=== PATIENT | female | born 2000 | race Caucasian/White ===

== ENCOUNTER 2022-02-04 09:02 | Emergency (ER) | payer MEDICAID, SELFPAY ==
[2022-02-04 09:22] VITALS: BP 141/80; PULSE 97; RESP 16; TEMP 37; O2SAT 98; BMI 40.1
[2022-02-04 09:41] LABS: Add Urine Microscopic? YES; Bilirubin Urine Neg (Negative); Blood Urine 3+ (Negative); Glucose Urine UA Norm (Normal); Ketones Urine Negative (Negative); Leukocyte Esterase Urine Trace (Negative); Nitrate Urine Negative (Negative); Protein Urine Neg (Negative); Specific Gravity, Urine 1.005 (1.005-1.030); Urine Appearance SL Hazy (CLEAR); Urine Color Yellow (Yellow); Urobilinogen Urine Norm (Negative); pH Urine 7 (5-7)
[2022-02-04 09:44] LABS: Add Urine Culture? No; Bacteria Urine TRACE /hpf; RBC Urine 0-4 /hpf (0-2)
--- NOTE | 2022-02-04 11:20 | ED_ITS ---
HPI - General: Chief complaint: Vaginal Bleeding Stated complaint: 6 weeks preg spotting Time Seen by Provider: 02/04/22 11:19 History of Present Illness: Ms. Connors is a 21-year-old female with last menstrual period December 21 presenting to the emergency department due to vaginal bleeding. She reports positive test at home and apparently was seen at [facility] approximately 1 week ago for green vaginal discharge. She reports ultrasound to identified gestational sac at that time and her beta-hCG was on the low end of normal. She noticed pink tinge last night while wiping after using the bathroom and now has progressed to bright red bleeding. Denies associated abdominal discomfort or pain. Denies passing clots or tissue. Overall course of symptoms has worsened. Intensity is moderate. No other specific changes in health, exacerbating, or alleviating factors identified. Onset (ago): hour(s) Vaginal discharge: none Vaginal bleeding: light Date of Last Menstrual Period: 12/21/21 Patient : Yes OB History - Previous Pregnancies: no complications Review of Systems General: Reports: 10 or more systems reviewed and unremarkable except in HPI and below PFSH ED PFSH: Medical History (Updated 02/12/22 @ 00:00 by ) No pertinent past medical history Social History Smoking and tobacco status: never smoked Alcohol intake: never Sexually active: Yes Female Reproductive History: Date of last menstrual period: 12/21/21 Physical Exam Const: COMMON NORMALS: alert GENERAL APPEARANCE: cooperative and well developed HENMT: COMMON NORMALS: normocephalic and atraumatic HEAD & SCALP: normocephalic and atraumatic Eye: COMMON NORMALS: conjunctivae normal CONJUNCTIVA: Yes conjunctivae normal SCLERA: sclerae normal Neck/C-Spine: COMMON NORMALS: supple GENERAL: Yes trachea midline Resp: COMMON NORMALS: normal respiratory effort and clear to auscultation bilaterally EFFORT & INSPECTION: Yes able to speak in complete sentences AUSCULTATION: clear to auscultation bilaterally Cardio: COMMON NORMALS: regular rate and regular rhythm RATE: regular rate RHYTHM: regular rhythm GI: COMMON NORMALS: Soft to palpation PALPATION: Yes Soft to palpation and No Tenderness to palpation present (GI) PERCUSSION: normal to percussion : OTHER: Pelvic exam performed with trust operations assistant present. External genitalia normal. Speculum exam reveals mucoid discharge through closed cervical os, scant amount of dark red blood in the vaginal vault without evidence of vaginal source. No specific tenderness on bimanual exam. Extremity: GENERAL: Yes normal exam except as noted and No edema Neuro: COMMON NORMALS: moves all extremities SENSORIUM/ORIENTATION: Yes alert and No Orientation impaired Psych: COMMON NORMALS: mental status grossly normal and Normal thought process present THOUGHT PROCESS: Normal thought process present Course ED course: - Patient was seen and evaluated by me at bedside - Patient placed on cardiac monitors, IV access obtained - Initial evaluation notable for exam as above - Labs personally interpreted by me - Labs notable for no leukocytosis, normal hemoglobin. Serum quant 2211 which is increased from prior reported 1027 though still on the low end. Urinalysis without evidence of urinary tract infection given squamous epithelial contamination. Negative wet prep. - Imaging notable for intrauterine gestational sac with pole and yolk sac identified, estimated 6 weeks gestational age, heart rate measured at 122. No evidence of bleeding on ultrasound. - Upon serial reexamination after treatment the patient was similar - Based on patient history, evaluation, and testing as interpreted the most likely cause of the patient's condition is threatened spontaneous - The results of ED evaluation were discussed with the patient including prescriptions and/or symptomatic cares (if applicable) including appropriate and responsible use, followup plan, and return precautions. The patient verbalized understanding and felt safe for discharge. - Patient discharged in satisfactory condition. Note: Click bubbles or prepopulated dong in note writing are used for assistance with data collection and billing and are inherently more limited than narrative and other text portions of this note. Please use narrative for additional clinical history and defer to narrative/free test for any case of contradictory information. If information appears in only free text or click bubble it s hould be considered present or absent as reported. Please contact note telegraphic typewriter operator chief for clarifications of clinical information or contradictory information. MDM is a brief summary, contradictory or erroneous seeming information should be clarified and full note should be reviewed. Vital Signs: Vital signs: Vital Signs Temperature 98.6 F 02/04/22 09:22 Pulse Rate 97 02/04/22 09:22 Respiratory Rate 16 02/04/22 09:22 Blood Pressure 141/80 02/04/22 09:22 Pulse Oximetry 98 02/04/22 09:22 MDM - OB/Uterine Contractions Medical Decision Making 21-year-old female presenting with bleeding during . Cervical os appears closed however there is mucoid discharge with scant dark red blood noted. Ultrasound identifies no evidence of bleeding, heart rate present. Most likely diagnosis is threatened spontaneous . Discussed with the patient. Return precautions given. Medical Records I reviewed the patient's medical records. Lab Data I reviewed the patient's lab results. : 02/04/22 11:34 Radiology Impressions Ultrasound 02/04/22 12:19 IMPRESSION: 1. Intrauterine gestational sac with pole and yolk sac. 2. Gestational age 6 weeks ALTHEA 09/30/2022. 3. Negative uterus and bilateral ovaries Negative bilateral ovaries 4. Small free fluid collection in the cul-de-sac Laboratory Results WBC 8.0 10^3/uL (4.5-13.0) 02/04/22 11:34 RBC 4.81 10^6/uL (4.1-5.3) 02/04/22 11:34 Hgb 14.4 g/dL (11.5-15.3) 02/04/22 11:34 Hct 42.2 % (37.0-47.0) 02/04/22 11:34 MCV 87.7 fl (81-99) 02/04/22 11:34 MCH 29.9 pg (28.0-34.0) 02/04/22 11:34 MCHC 34.1 g/dL (30.0-36.0) 02/04/22 11:34 RDW 12.4 % (12.1-15.1) 02/04/22 11:34 Plt Count 306 10^3/cmm (130-400) 02/04/22 11:34 MPV 11.2 fL (7.4-10.4) H 02/04/22 11:34 Neut % (Auto) 72.2 % 02/04/22 11:34 Lymph % (Auto) 19.9 % 02/04/22 11:34 [place] % (Auto) 5.7 % 02/04/22 11:34 Eos % (Auto) 1.4 % 02/04/22 11:34 Baso % (Auto) 0.5 % 02/04/22 11:34 Neut # (Auto) 5.75 10^3/uL (1.8-8.0) 02/04/22 11:34 Lymph # (Auto) 1.6 10^3/uL (1.5-6.5) 02/04/22 11:34 [place] # (Auto) 0.5 10^3/uL (0.2-0.9) 02/04/22 11:34 Eos # (Auto) 0.1 10^3/uL (0.0-0.8) 02/04/22 11:34 Baso # (Auto) 0.0 10^3/uL (0.0-0.1) 02/04/22 11:34 Nucleated RBC % (auto) 0 % 02/04/22 11:34 Nucleated RBCs # 0.0 /100WBC 02/04/22 11:34 Ser , Semi-Qnt 2211.00 mIU/mL 02/04/22 11:34 Urine Color Yellow (Yellow) 02/04/22 09:30 Urine Appearance Sl hazy (CLEAR) 02/04/22 09:30 Urine pH 7 (5-7) 02/04/22 09:30 Ur Specific [place] 1.005 (1.005-1.030) 02/04/22 09:30 Urine Protein Neg (Negative) 02/04/22 09:30 Urine Glucose (UA) Norm (Normal) 02/04/22 09:30 Urine Ketones Negative (Negative) 02/04/22 09:30 Urine Blood 3+ (Negative) H 02/04/22 09:30 Urine Nitrate Negative (Negative) 02/04/22 09:30 Urine Bilirubin Neg (Negative) 02/04/22 09:30 Urine Urobilinogen Norm mg/dL (Negative) 02/04/22 09:30 Ur Leukocyte Esterase Trace (Negative) H 02/04/22 09:30 Urine RBC 0-4 /hpf (0-2) H 02/04/22 09:30 Urine WBC 5-10 /hpf (0-5) H 02/04/22 09:30 Ur Squamous Epith Cells 5-10 /hpf (0-5) H 02/04/22 09:30 Amorphous Sediment Not Reportable 02/04/22 09:30 Urine Bacteria Trace /hpf (NONE) 02/04/22 09:30 Blood Type AB Positive 02/04/22 11:34 Rho(D) Type Positive 02/04/22 11:34 Discharge Plan Discharge Patient Disposition: Home Clinical Impression: Vaginal bleeding during Condition: Stable Prescriptions: No Action prenat.vits,patrica,[id number] Tablet 1 tab PO DAILY 0RF Discharge Orders: Discharge ED (Routine); Ordered 02/04/22 Ordered By: Javier Brambila Discharge Diet: Usual diet Discharge Activity: Resume usual activity Patient Instructions: Threatened Miscarriage (ED) Activity Restrictions/Additional Instructions: Thank you for visiting the emergency department. You were seen and evaluated for vaginal bleeding during . The exact cause of your symptoms is unclear. As discussed unfortunately it is impossible to know what this means regarding your . Please continue to follow-up with your QUALITY ASSURANCE SUPERVISOR BODY. Please return to the emergency department for uncontrolled pain, soaking through greater than 2 pads per hour for more than 2 hours, lightheadedness, dizziness, or anything else that you are concerned about a feel needs emergency department evaluation. Stand Alone Forms: Work/School Release Coding Level of Care Code ED Signs Sales Representative for Alyson Fwlavell Exam Comprehensive
[2022-02-04 11:47] LABS: Basophils % 0.5 %; Eosinophils # 0.1 10^3/uL (0.0-0.8); Eosinophils % 1.4 %; Hematocrit 42.2 % (37.0-47.0); Hemoglobin 14.4 g/dL (11.5-15.3); Lymphocytes # 1.6 10^3/uL (1.5-6.5); Lymphocytes % 19.9 %; Mean Corpuscular HGB Conc 34.1 g/dL (30.0-36.0); Mean Corpuscular Hemoglobin 29.9 pg (28.0-34.0); Mean Corpuscular Volume 87.7 fl (81-99); Mean Platelet Volume 11.2 fL (7.4-10.4); Monocytes # 0.5 10^3/uL (0.2-0.9); Monocytes % 5.7 %; Neutrophils # 5.75 10^3/uL (1.8-8.0); Neutrophils % 72.2 %; Nucleated Red Blood Cells % 0 %; Platelet Count 306 10^3/cmm (130-400); Red Blood Count 4.81 10^6/uL (4.1-5.3); Red Cell Distribution Width 12.4 % (12.1-15.1)
--- NOTE | 2022-02-04 12:19 | USR_ITS ---
PROCEDURE INFORMATION: Exam: US First Trimester, Transabdominal and US , Transvaginal Exam date and time: 02/04/2022 12:29 PM Age: 21 years old Clinical indication: Lmp or gestational age (in weeks): 6 w0 day; Antepartum complications; Bleeding; ; Additional info: Lmp 12/21, bleeding TECHNIQUE: Imaging protocol: Real-time transabdominal obstetrical ultrasound of the maternal pelvis and a first trimester , less than 14 weeks 0 days, with image documentation. Transvaginal imaging was used for better evaluation of the fetus, adnexa, and/or cervix. COMPARISON: No relevant prior studies available. FINDINGS: Gestation: Intrauterine gestation. Yolk sac is 2.4 mm Embryonic/ heart rate: 122 BPM Extra-embryonic membranes/Placenta: Unremarkable. No subchorionic bleed. Amniotic fluid: Amniotic fluid and extra-amniotic fluid is normal for gestational age. BIOMETRY: Gestational age (AUA): CRL 3.3 mm 6 weeks ALTHEA 09/30/2022 MATERNAL: Uterus: Unremarkable. Cervix: Unremarkable. Right ovary/adnexa: Unremarkable ovary. 2.8 cm x 2.5 cm x 2 cm Left ovary/adnexa: Unremarkable ovary. 3 cm x 1.4 cm x 2 cm a Intraperitoneal space: Small fluid collection is seen in the cul-de-sac US/US OB <= 14 weeks fetus [id number] IMPRESSION: 1. Intrauterine gestational sac with pole and yolk sac. 2. Gestational age 6 weeks ALTHEA 09/30/2022. 3. Negative uterus and bilateral ovaries Negative bilateral ovaries 4. Small free fluid collection in the cul-de-sac
== END 2022-02-04 13:56 | disposition home or self-care (01) ==
PROVIDERS: Emergency Medicine; Emergency Provider Emergency Medicine
DX: O26.851 Spotting complicating pregnancy, first trimester (principal); Z3A.01 Less than 8 weeks gestation of pregnancy
CPT/HCPCS: 76801; 81001; 84702; 85025; 86900; 87210; 99283

== ENCOUNTER → 2022-02-06 10:59 | Outpatient (BNVA) | payer MEDICAID, SELFPAY | PROVIDERS: Visit Provider Obstetrics & Gynecology | DX: O46.90 Antepartum hemorrhage, unspecified, unspecified trimester (principal) | CPT/HCPCS: 84702 ==

== ENCOUNTER → 2022-02-07 15:30 | Outpatient (BNVA) | payer MEDICAID, SELFPAY | PROVIDERS: Visit Provider Obstetrics & Gynecology | DX: O20.9 Hemorrhage in early pregnancy, unspecified (principal); Z3A.00 Weeks of gestation of pregnancy not specified | CPT/HCPCS: 76801; 76817 ==

== ENCOUNTER → 2022-06-21 08:52 | Outpatient (BNVA) | payer MEDICAID, SELFPAY | PROVIDERS: Visit Provider Obstetrics & Gynecology | DX: E66.9 Obesity, unspecified (principal) | CPT/HCPCS: 83036; 83525; 84443 ==

== ENCOUNTER → 2022-08-31 11:18 | Outpatient (BNVA) | payer MEDICAID, SELFPAY | PROVIDERS: Visit Provider Obstetrics & Gynecology | DX: Z30.9 Encounter for contraceptive management, unspecified (principal) | CPT/HCPCS: 84702 ==

== ENCOUNTER → 2022-09-03 11:40 | Outpatient (BNVA) | payer MEDICAID, SELFPAY | PROVIDERS: Visit Provider Obstetrics & Gynecology | DX: Z34.90 Encounter for supervision of normal pregnancy, unspecified, unspecified trimester (principal) | CPT/HCPCS: 84702 ==